=== PATIENT | female | born 1995 | race African-American/Black ===

== ENCOUNTER → 2016-09-12 | Outpatient (CLI) | payer OTHER ==
[~2016-09-12] MED LIST: CLIN-44 PO
[2016-09-12 10:10] VITALS: BP 115/66
== END | disposition home or self-care (01) ==
LOC: OPS 09:12
PROVIDERS: ATTEND Specialist
DX: O26.893 Other specified pregnancy related conditions, third trimester (principal)
CPT/HCPCS: 36415; 86850; 86900; 86901; 96372; J2791

== ENCOUNTER 2020-05-11 14:34 | Emergency (ER) | payer OTHER ==
[~2020-05-11] VITALS: Ht 160 cm; Wt 88.0 kg
[~2020-05-11 14:34] MED LIST changes: -CLIN-44 PO; +CLIN150C14 PO
[2020-05-11 15:17] LABS: BILIRUBIN,URINE NEGATIVE (NEG); CLARITY,URINE CLEAR; COLOR,URINE YELLOW; NITRITE,URINE NEGATIVE (NEG); PH,URINE 6.5 (<5.0-8.0); PROTEIN,URINE NEGATIVE (NEG-TRACE)
[2020-05-11 15:24] LABS: BARBITURATES NEG (NEG); BENZODIAZEPINES NEG (NEG); CANNABINOIDS POS (NEG); COCAINE NEG (NEG); METHADONE NEG (NEG); OPIATES NEG (NEG); PHENCYCLIDINE NEG (NEG)
[2020-05-11 15:25] LABS: AMPHETAMINE/METHAMPHETAMINE NEG (NEG)
[2020-05-11 15:28] LABS: BACTERIA,URINE FEW /HPF (0-FEW); SQUAMOUS EPITHELIAL CELL,UR MOD /LPF
[2020-05-11 15:50] LABS: BASO % 0 % (0-3); EOS # 0.1 x10^3/uL (0.0-0.7); EOS % 1 % (0-3); HEMATOCRIT 42.2 % (36.0-47.0); LYMPH # 1.3 x10^3/uL (1.0-4.8); LYMPH % 16 % (24-48); MEAN CORPUSCULAR HEMOGLOBIN 28 pg (25-35); MEAN CORPUSCULAR HGB CONC 33 g/dL (31-37); MEAN CORPUSCULAR VOLUME 85 fL (79-100); MONO # 0.7 x10^3/uL (0.0-1.1); MONO % 8 % (0-9); NEUT # 6.3 x10^3/uL (1.8-7.7); NEUT % 75 % (31-73); PLATELET COUNT 234 x10^3/uL (140-400); RED BLOOD COUNT 4.95 x10^6/uL (3.50-5.40); WHITE BLOOD COUNT 8.5 x10^3/uL (4.0-11.0)
[2020-05-11 16:02] LABS: CALCIUM 8.9 mg/dL (8.5-10.1); CREATININE 0.9 mg/dL (0.6-1.0); GFR 93.1; POTASSIUM 3.7 mmol/L (3.5-5.1)
[2020-05-11 16:08] LABS: ALBUMIN 3.4 g/dL (3.4-5.0); TOTAL BILIRUBIN 0.2 mg/dL (0.2-1.0); TOTAL PROTEIN 6.8 g/dL (6.4-8.2)
[2020-05-11] MEDS ORDERED: IOHEXOL 300 MG/ML 100ML VIAL. IV ONE (16:15)
--- NOTE | 2020-05-11 16:42 | RAD ---
INDICATION: Reason: RLQ pain / Spl. Instructions: IV OMNI 300 75 MLS / History: COMPARISON: None. TECHNIQUE: Axial CT images obtained through the abdomen and pelvis with contrast. One or more of the following individualized dose reduction techniques were utilized for this examination: 1. Automated exposure control; 2. Adjustment of the mA and/or kV according to patient size; 3. Use of iterative reconstruction technique. FINDINGS: Abdominal aorta is not aneurysmal. No intrahepatic bile duct dilation. No peripancreatic fluid collection. Spleen unremarkable. No hydronephrosis. Urinary bladder is partially distended. There is some free fluid seen within the pelvis with some edema to the soft tissues. The appendix does not appear significantly dilated and is not located at the region of edema of the fat and free fluid. A portion of the free fluid within the pelvis appears higher than simple density. There are some prominent enhancing walled loops of small bowel coursing through the region. There is a distended tubular structure in the right adnexal region fluid within. This is in the location of free fluid IMPRESSION: * No definite periappendiceal inflammatory changes. * Within the pelvis there is some free fluid identified with a portion of it appearing higher than simple density which could be from a component of debris or blood within. * Within the right adnexa there is a fluid-filled distended peripheral enhancing structure identified coursing through the region of free fluid. It is difficult to tell if this is secondary to a focally dilated fallopian tube on the right or if this is secondary to an inflamed loop of bowel coursing through the area. Would correlate with symptoms in the region given that causes such as pelvic inflammatory disease with hydrosalpinx or pyosalpinx could have this appearance. * No hydronephrosis. Electronically signed by: Thierry Mendoza MD (05/11/2020 4:39 PM) [id number]
[2020-05-11 17:45] VITALS: BP 138/96
--- NOTE | 2020-05-11 17:58 | RAD ---
Exam: Ultrasound pelvis Indication: Pelvic pain Technique: Real-time grayscale and color Doppler images of the pelvis were obtained by the department vacuum worker. Comparisons: Abdomen pelvis same day FINDINGS: Uterus measures 7.5 x 4.3 x 3.6 cm. Endometrium is 4 mm in thickness is trace amount of fluid in the endometrium. Right ovary measures 3.9 x 2.0 x 2.0 cm. In the right adnexa there is a tubular fluid collection. Left ovary measures 3.3 x 1.8 x 2.1 cm. Vascular flow identified within the ovaries bilaterally. There is a small amount of free fluid in the pelvis. IMPRESSION: Findings concerning for right-sided tubo-ovarian abscess. Electronically signed by: Chadwick Boyer MD (05/11/2020 5:55 PM) [id number]
[2020-05-11] MEDS ORDERED: metroNIDAZOLE 500 MG TABLET PO ONE (18:45)
[2020-05-11] MEDS ORDERED: AZITHROMYCIN 250 MG TABLET. PO ONE (18:45)
[2020-05-11] MEDS ORDERED: cefTRIAXone IV Push 1 GM VIAL. IVP ONE (18:45)
[2020-05-11] MEDS ORDERED: ONDANSETRON PF 4 MG/2 ML VIAL. ONE (19:03)
[2020-05-11] MEDS ORDERED: ONDANSETRON PF 4 MG/2 ML VIAL. IVP ONE (19:15)
--- NOTE | 2020-05-11 19:50 | PHYS DOC ---
Past Medical History Past Medical History: No Pertinent History Past Surgical History: No Surgical History Smoking Status: Current Every Day Smoker Alcohol Use: Occasionally Drug Use: None General Adult EDM: Chief Complaint: ABDOMINAL PAIN HPI: HPI: Patient is a 24 year old female with no significant medical history who presents today complaining of 8 out of 10 throbbing right lower quadrant ab dominal pain that has been going on intermittently for week. Patient denies anything specifically exacerbating or relieving the pain. She states her last menstrual cycle was 2 weeks ago though she spotted last week. Denies any nausea vomiting. Denies any concerns for STDs but reports she is sexually active and has a boyfriend. Denies any chance she is . Review of Systems: Review of Systems: Constitutional: Denies fever or chills. [] Eyes: Denies change in visual acuity. [] HENT: Denies nasal congestion or sore throat. [] Respiratory: Denies cough or shortness of breath. [] Cardiovascular: Denies chest pain or edema. [] GI: Reports right lower quadrant abdominal pain. Denies nausea, vomiting, bloody stools or diarrhea. [] : Denies dysuria. [] Musculoskeletal: Denies back pain or joint pain. [] Integument: Denies rash. [] Neurologic: Denies headache, focal weakness or sensory changes. [] Psychiatric: Denies depression or anxiety. [] Heart Score: Risk Factors: Risk Factors: DM, Current or recent (<one month) smoker, HTN, HLP, family history of CAD, obesity. Risk Scores: Score 0 - 3: 2.5% MACE over next 6 weeks - Discharge Home Score 4 - 6: 20.3% MACE over next 6 weeks - Admit for Clinical Observation Score 7 - 10: 72.7% MACE over next 6 weeks - Early Invasive Strategies Current Medications: Current Medications Medications (Trade) Dose Ordered Sig/Padmini Start Time Stop Time Status Last Admin Dose Admin Azithromycin (Zithromax) 1,000 mg 1X ONCE 05/11/20 18:45 05/11/20 18:46 DC 05/11/20 18:57 1,000 MG Ceftriaxone Sodium (Rocephin) 1 gm 1X ONCE 05/11/20 18:45 05/11/20 18:46 DC 05/11/20 18:57 1 GM Iohexol (Omnipaque 300 Mg/ml) 75 ml 1X ONCE 05/11/20 16:15 05/11/20 16:16 DC 05/11/20 16:32 75 ML Metronidazole (Flagyl) 2,000 mg 1X ONCE 05/11/20 18:45 05/11/20 18:46 DC 05/11/20 18:56 2,000 MG Ondansetron HCl (Zofran) 4 mg 1X ONCE 05/11/20 19:15 05/11/20 19:16 DC 05/11/20 19:05 4 MG Allergies: Allergies: Allergies Coded Allergies Type Severity Reaction Last Updated Verified No Known Drug Allergies 09/12/16 No Physical Exam: PE: Constitutional: Well developed, well nourished, no acute distress, non-toxic ap pearance. [] HENT: Normocephalic, atraumatic, bilateral external ears normal, oropharynx moist, no oral exudates, nose normal. [] Eyes: PERRLA, EOMI, conjunctiva normal, no discharge. [] Neck: Normal range of motion, no tenderness, supple, no stridor. [] Cardiovascular:Heart rate regular rhythm, no murmur [] Lungs & Thorax: Bilateral breath sounds clear to auscultation [] Abdomen: Bowel sounds normal, soft, no right upper quadrant tenderness, tenderness on palpation of the right lower quadrant., no masses, no pulsatile masses. [] Pelvic exam External pelvic appears normal, cervix is visualized, no CMT , mild right adnexal tenderness, no left adnexal tenderness, mild white discharge noted in the vaginal vault. Skin: Warm, dry, no erythema, no rash. [] Back: No tenderness, no CVA tenderness. [] Extremities: No tenderness, no cyanosis, no clubbing, ROM intact, no edema. [] Neurologic: Alert and oriented X 3, normal motor function, normal sensory function, no focal deficits noted. [] Psychologic: Affect normal, judgement normal, mood normal. [] Current Patient Data: Labs: Laboratory Tests Test 05/11/20 15:03 05/11/20 15:15 05/11/20 15:39 Urine Collection Type Unknown Urine Color Yellow Urine Clarity Clear Urine pH 6.5 (<5.0-8.0) Urine Specific [place] 1.025 (1.000-1.030) Urine Protein Negative mg/dL (NEG-TRACE) Urine Glucose (UA) Negative mg/dL (NEG) Urine Ketones (Stick) Trace mg/dL (NEG) Urine Blood Negative (NEG) Urine Nitrite Negative (NEG) Urine Bilirubin Negative (NEG) Urine Urobilinogen Dipstick 1.0 mg/dL (0.2 mg/dL) Urine Leukocyte Esterase Negative (NEG) Urine RBC 1-2 /HPF (0-2) Urine WBC 1-4 /HPF (0-4) Urine Squamous Epithelial Cells Mod /LPF Urine Bacteria Few /HPF (0-FEW) Urine Mucus Marked /LPF Urine Opiates Screen Neg (NEG) Urine Methadone Screen Neg (NEG) Urine Barbiturates Neg (NEG) Urine Phencyclidine Screen Neg (NEG) Urine Amphetamine/Methamphetamine Neg (NEG) Urine Benzodiazepines Screen Neg (NEG) Urine Cocaine Screen Neg (NEG) Urine Cannabinoids Screen Pos (NEG) Urine Ethyl Alcohol Neg (NEG) POC Urine HCG, Qualitative Hcg negative (Negative) White Blood Count 8.5 x10^3/uL (4.0-11.0) Red Blood Count 4.95 x10^6/uL (3.50-5.40) Hemoglobin 14.0 g/dL (12.0-15.5) Hematocrit 42.2 % (36.0-47.0) Mean Corpuscular Volume 85 fL (79-100) Mean Corpuscular Hemoglobin 28 pg (25-35) Mean Corpuscular Hemoglobin Concent 33 g/dL (31-37) Red Cell Distribution Width 14.0 % (11.5-14.5) Platelet Count 234 x10^3/uL (140-400) Neutrophils (%) (Auto) 75 % (31-73) H Lymphocytes (%) (Auto) 16 % (24-48) L Monocytes (%) (Auto) 8 % (0-9) Eosinophils (%) (Auto) 1 % (0-3) Basophils (%) (Auto) 0 % (0-3) Neutrophils # (Auto) 6.3 x10^3/uL (1.8-7.7) Lymphocytes # (Auto) 1.3 x10^3/uL (1.0-4.8) Monocytes # (Auto) 0.7 x10^3/uL (0.0-1.1) Eosinophils # (Auto) 0.1 x10^3/uL (0.0-0.7) Basophils # (Auto) 0.0 x10^3/uL (0.0-0.2) Sodium Level 139 mmol/L (136-145) Potassium Level 3.7 mmol/L (3.5-5.1) Chloride Level 103 mmol/L (98-107) Carbon Dioxide Level 25 mmol/L (21-32) Anion Gap 11 (6-14) Blood Urea Nitrogen 7 mg/dL (7-20) Creatinine 0.9 mg/dL (0.6-1.0) Estimated GFR (Cockcroft-Gault) 93.1 BUN/Creatinine Ratio 8 (6-20) Glucose Level 78 mg/dL (70-99) Calcium Level 8.9 mg/dL (8.5-10.1) Total Bilirubin 0.2 mg/dL (0.2-1.0) Aspartate Amino Transferase (AST) 10 U/L (15-37) L Alanine Aminotransferase (ALT) 16 U/L (14-59) Alkaline Phosphatase 62 U/L (46-116) Total Protein 6.8 g/dL (6.4-8.2) Albumin 3.4 g/dL (3.4-5.0) Albumin/Globulin Ratio 1.0 (1.0-1.7) Lipase 175 U/L (73-393) Ethyl Alcohol Level < 10 mg/dL (0-10) Laboratory Tests 05/11/20 15:39 Laboratory Tests 05/11/20 15:39 Microbiology 05/11/20 Wet Prep - Final, Complete Vital Signs: Vital Signs Date Time Temp Pulse Resp B/P (MAP) Pulse Ox O2 Delivery O2 Flow Rate FiO2 05/11/20 17:45 97 16 138/96 (110) 100 Room Air 05/11/20 14:55 98.4 98.4 EKG: EKG: [] Radiology/Procedures: Radiology/Procedures: []PROCEDURE: CT ABD PELV W/ IV CONTRST ONLY INDICATION: Reason: RLQ pain / Spl. Instructions: IV OMNI 300 75 MLS / History: COMPARISON: None. TECHNIQUE: Axial CT images obtained through the abdomen and pelvis with contrast. One or more of the following individualized dose reduction techniques were utilized for this examination: 1. Automated exposure control; 2. Adjustment of the mA and/or kV according to patient size; 3. Use of iterative reconstruction technique. FINDINGS: Abdominal aorta is not aneurysmal. No intrahepatic bile duct dilation. No peripancreatic fluid collection. Spleen unremarkable. No hydronephrosis. Urinary bladder is partially distended. There is some free fluid seen within the pelvis with some edema to the soft tissues. The appendix does not appear significantly dilated and is not located at the region of edema of the fat and free fluid. A portion of the free fluid within the pelvis appears higher than simple density. There are some prominent enhancing walled loops of small bowel coursing through the region. There is a distended tubular structure in the right adnexal region fluid within. This is in the location of free fluid IMPRESSION: * No definite periappendiceal inflammatory changes. * Within the pelvis there is some free fluid identified with a portion of it appearing higher than simple density which could be from a component of debris or blood within. * Within the right adnexa there is a fluid-filled distended peripheral enhancing structure identified coursing through the region of free fluid. It is difficult to tell if this is secondary to a focally dilated fallopian tube on the right or if this is secondary to an inflamed loop of bowel coursing through the area. Would correlate with symptoms in the region given that causes such as pelvic inflammatory disease with hydrosalpinx or pyosalpinx could have this appearance. * No hydronephrosis. Electronically signed by: Marizol Mendoza MD (05/11/2020 4:39 PM) [id number] DICTATED and SIGNED BY: MARIZOL MENDOZA MD DATE: 05/11/20 7614 Course & Med Decision Making: Course & Med Decision Making Pertinent Labs and Imaging studies reviewed. (See chart for details) This is a 24-year-old female patient presenting to the ED today complaining of right lower quadrant abdominal pain for 1 week. Negative urine hCG, CBC with a normal WBC, CMP with no acute findings, urine analysis negative for infection. CT of the abdomen and pelvis was done to rule out appendicitis, CT was noted for possible infection in the fallopian tube. Pelvic ultrasound was done, noted for right tubo-ovarian abscess. Patient was given Rocephin Flagyl and azithromycin, she vomited. Consulted with who recommended patient be admitted for IV antibiotic and surgery. Patient refused to be admitted, she states she has to go home and take care of her babies. I I talked to her about the risk of leaving AMA including and disability as well as infertility considering her age of 24. She continues to refuse. She signed out AMA. She is alert oriented x4 and able to make her own decisions. Enedina Disclaimer: Enedina Disclaimer: This electronic medical record was generated, in whole or in part, using a voice recognition dictation system. Departure Departure Impression: Primary Impression: Fallopian tube abscess Additional Impression: Ovarian abscess Disposition: 07 AGAINST MEDICAL ADVICE Condition: STABLE Referrals: NO PCP (PCP) Justicifation of Admission Dx: Justifications for Admission: Justification of Admission Dx: N/A JOSE EDUARDO HALL APRN May 11, 2020 19:50
[2020-05-12 19:09] LABS: GC PROBE Negative (Negative)
== END 2020-05-11 19:30 | disposition left against medical advice (07) ==
LOC: ER 14:34
DX: N70.93 Salpingitis and oophoritis, unspecified (principal); R10.31 Right lower quadrant pain; F17.200 Nicotine dependence, unspecified, uncomplicated
CPT/HCPCS: 36415; 74177; 76830; 76856; 80053; 80307; 81001; 81025; 83690; 85025; 87491; 87591; 96374; 96375; 99285; G0480; J0696; J2405; Q0111; Q9967

== ENCOUNTER 2020-09-19 01:43 | Emergency (ER) | payer OTHER ==
[~2020-09-19] VITALS: Ht 160 cm; Wt 88.6 kg
[~2020-09-19 01:43] MED LIST changes: -CLIN150C14 PO; +CLIN150C15 PO
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
--- NOTE | 2020-09-19 03:22 | RAD ---
CT head without contrast PQRS statement: CT scans at this facility use dose reduction including either automated exposure cont rol, iterative reconstructions, and /or weight based radiation dosing via mA and kV modification when appropriate to reduce radiation dose to as low as reasonably achievable. HISTORY: Fall, frontal scalp contusion. FINDINGS: No intracranial hemorrhage, mass, hydrocephalus, extra-axial fluid collections or infarctio n. There is a left frontal scalp subcentimeter in thickness hematoma and mild swelling. There is also occipital scalp subcentimeter in thickness hematoma and overlying edema with mild swelling. Orbits, mastoids and bones are unremarkable. IMPRESSION: No acute intrarenal CT abnormality. Frontal and occipital scalp hematoma. No skull fractu re. Electronically signed by: Preston Pozo MD (09/19/2020 3:20 AM) [facility]
[2020-09-19 03:46] VITALS: BP 113/57
== END 2020-09-19 03:51 | disposition home or self-care (01) ==
LOC: ER 01:43
DX: S00.83XA Contusion of other part of head, initial encounter (principal); F17.200 Nicotine dependence, unspecified, uncomplicated; Y04.0XXA Assault by unarmed brawl or fight, initial encounter; Y93.89 Activity, other specified; Y92.89 Other specified places as the place of occurrence of the external cause; Y99.8 Other external cause status
CPT/HCPCS: 70450; 81025; 99285-25